=== PATIENT | male | born 1935 | race Caucasian/White ===

== ENCOUNTER 2017-02-23 16:46 | Inpatient (IN) ==
[2017-02-23 18:03] LABS: Basophils % 0.4 % (0.0-0.8); Eosinophils % 0.4 % (0.00-10.9); Hematocrit 44.1 VOL% (42.0-52.0); Hemoglobin 14.8 GM/DL (14.0-18.0); Immature Granulocytes % 0.6 %; Immature Granulocytes Absolute 0.06 #; Lymphocytes % 9.4 % (21.2-54.2); Mean Corpuscular HGB Conc 33.6 GM/DL (32-36); Mean Corpuscular Hemoglobin 29 PG (27-34); Mean Corpuscular Volume 87.2 FL (87-102); Mean Platelet Volume 11.1 FL (9.6-12.0); Monocytes # 0.4 10*3/uL (0.11-0.8); Monocytes % 4.1 % (1.7-12.7); Neutrophils # 8.9 10*3/uL (1.4-7.4); Neutrophils % 85.1 % (38.7-73.9); Platelet Count 231 T/CUMM (130-400); Red Blood Count 5.06 MC/CUMM (3.8-5.5); White Blood Count 10.5 T/CUMM (4-12)
[2017-02-23 18:11] LABS: INR 1.6; PT Patient Result 16.3 SECS
[2017-02-23 18:14] LABS: Calcium 9.5 MG/DL (8.5-10.1); Osmolality,Calculated 283.8 MOS/KG (273-304); Potassium 3.8 MMOL/L (3.5-5.1)
[2017-02-23] MEDS ORDERED: DIPH/TET/ACEL PERT BOOSTER VACCINE 0.5 ML VIAL IM ONE ×2 (19:44→20:20)
[2017-02-23] MEDS ORDERED: ceFAZolin 2,000 MG in SODIUM CHLORIDE 0.9% 100 ML IV STA (19:45)
[2017-02-23] MEDS ORDERED: ACETAMINOPHEN 325 MG TABLET PO PRN (20:09)
[2017-02-23] MEDS ORDERED: MORPHINE 10 MG/1 ML VIAL IV PRN (20:09)
[2017-02-23] MEDS ORDERED: ONDANSETRON 4 MG/2 ML VIAL IV PRN (20:09)
[2017-02-23] MEDS ORDERED: ceFAZolin 1,000 MG VIAL ONE (20:20)
[2017-02-24 07:28] LABS: INR 1.5; PT Patient Result 15.4 SECS; Partial Thromboplastin Time 31.5 SECS (0-40)
[2017-02-24 07:29] LABS: Basophils % 0.2 % (0.0-0.8); Eosinophils % 0.1 % (0.00-10.9); Hematocrit 36.6 VOL% (42.0-52.0); Immature Granulocytes % 0.6 %; Immature Granulocytes Absolute 0.05 #; Lymphocytes # 1.3 10*3/uL (1.4-4.0); Lymphocytes % 15.2 % (21.2-54.2); Mean Corpuscular HGB Conc 34.7 GM/DL (32-36); Mean Corpuscular Hemoglobin 30 PG (27-34); Mean Corpuscular Volume 85.1 FL (87-102); Mean Platelet Volume 11.4 FL (9.6-12.0); Monocytes # 0.8 10*3/uL (0.11-0.8); Monocytes % 9.7 % (1.7-12.7); Neutrophils # 6.3 10*3/uL (1.4-7.4); Neutrophils % 74.2 % (38.7-73.9); Platelet Count 207 T/CUMM (130-400); Red Cell Distribution Width 13.2 % (9.3-17.3); White Blood Count 8.4 T/CUMM (4-12)
[2017-02-24 07:42] LABS: Albumin 3.4 G/DL (3.4-5.0); Bilirubin,Total 1.5 MG/DL (0.2-1.0); Calcium 8.8 MG/DL (8.5-10.1); Hemoglobin 12.7 GM/DL (14.0-18.0); Osmolality,Calculated 280.8 MOS/KG (273-304); Potassium 3.1 MMOL/L (3.5-5.1); Total Protein 6.1 G/DL (6.4-8.3)
[2017-02-24] MEDS ORDERED: MAGNESIUM CHLORIDE 64 MG TABLET PO SCH (09:00)
[2017-02-24] MEDS: ENOXAPARIN 40 MG/0.4 ML SYRINGE SUBCUT SCH (09:51)
[2017-02-24] MEDS: FUROSEMIDE 40 MG TABLET PO SCH ×2 (09:51→15:40)
[2017-02-24] MEDS: INSULIN LISPRO 100 UNIT/ML SUBCUT SCH ×4 (09:51→21:10)
[2017-02-24] MEDS: cloNIDine 0.1 MG TABLET PO SCH (09:52)
[2017-02-24] MEDS: SOTALOL 80 MG TABLET PO SCH ×2 (09:52→21:09)
[2017-02-24] MEDS: sitaGLIPtin 100 MG TABLET PO SCH (09:52)
[2017-02-24] MEDS: ATORVASTATIN 40 MG TABLET PO SCH (09:52)
[2017-02-24] MEDS: LISINOPRIL 20 MG TABLET PO SCH ×2 (09:52→21:09)
[2017-02-24] MEDS: PANTOPRAZOLE 40 MG TABLET PO SCH (09:53)
[2017-02-24] MEDS ORDERED: SKIN HEALING OINT (AQUAPHOR) 50 GM TUBE TOP PRN (11:50)
[2017-02-24 14:47] LABS: Apearance,Urine CLEAR (Clear); Bilirubin,Urine Negative (Negative); Blood, Urine Negative (Negative); Glucose,Urine (UA) 50 mg/dL (Negative); Ketones,Urine 5 mg/dL (Negative); Mucus,Urine Occasional /LPF (Occasional); Nitrite,Urine Negative (Negative); Protein,Urine Negative; RBC,Urine <1 /HPF (0-4); Squamous Epithelial Cell,Urine Occasional /HPF (0-10); Urine Color Yellow (Yellow); Urine Specific Gravity 1.013 (1.001-1.035); Urine Urobilinogen < 2.0 EU/DL (0.2-1.0); WBC,Urine 1 /HPF (0-6)
[2017-02-24] MEDS ORDERED: PIOGLITAZONE 15 MG TABLET PO SCH (19:00)
[2017-02-25 05:30] LABS: Basophils % 0.2 % (0.0-0.8); Eosinophils # 0.1 10*3/uL (0.0-0.87); Eosinophils % 1.1 % (0.00-10.9); Hematocrit 35.7 VOL% (42.0-52.0); Hemoglobin 12.5 GM/DL (14.0-18.0); Immature Granulocytes % 0.5 %; Immature Granulocytes Absolute 0.04 #; Lymphocytes # 2.2 10*3/uL (1.4-4.0); Lymphocytes % 25.4 % (21.2-54.2); Mean Corpuscular Hemoglobin 30 PG (27-34); Mean Platelet Volume 11.5 FL (9.6-12.0); Monocytes # 0.9 10*3/uL (0.11-0.8); Monocytes % 10.2 % (1.7-12.7); Neutrophils # 5.4 10*3/uL (1.4-7.4); Neutrophils % 62.6 % (38.7-73.9); Platelet Count 212 T/CUMM (130-400); Red Cell Distribution Width 13.2 % (9.3-17.3); White Blood Count 8.6 T/CUMM (4-12)
[2017-02-25 06:03] LABS: Risk Ratio 1.98; Thyroid Stimulating Hormone 1.81 uIU/ml (0.358-3.74); VLDL CHOLESTEROL 11.8 MG/DL
[2017-02-25] MEDS: INSULIN LISPRO 100 UNIT/ML SUBCUT SCH (07:22)
[2017-02-25] MEDS: ENOXAPARIN 40 MG/0.4 ML SYRINGE SUBCUT SCH (07:23)
[2017-02-25 07:51] VITALS: BP 133/77
[2017-02-25] MEDS ORDERED: MAGNESIUM CHLORIDE 64 MG TABLET PO SCH (09:00)
[2017-02-25] MEDS: LISINOPRIL 20 MG TABLET PO SCH (09:10)
[2017-02-25] MEDS: sitaGLIPtin 100 MG TABLET PO SCH (09:10)
[2017-02-25] MEDS: ATORVASTATIN 40 MG TABLET PO SCH (09:10)
[2017-02-25] MEDS: PANTOPRAZOLE 40 MG TABLET PO SCH (09:10)
[2017-02-25] MEDS: cloNIDine 0.1 MG TABLET PO SCH (09:10)
[2017-02-25] MEDS: FUROSEMIDE 40 MG TABLET PO SCH (09:10)
[2017-02-25] MEDS: SOTALOL 80 MG TABLET PO SCH (09:10)
== END 2017-02-25 11:01 | disposition home health service (06) | DRG 158 ==
LOC: N.ED 16:46 → N.EDINP 20:09 → N.3E 20:58
PROVIDERS: ADMIT Family Medicine; ATTEND Family Medicine

== ENCOUNTER 2019-04-05 13:47 | Inpatient (IN) ==
[2019-04-05] MEDS ORDERED: ONDANSETRON 4 MG/2 ML VIAL IV STA (15:27)
[2019-04-05] MEDS ORDERED: HYDROmorphone 2 MG/1 ML VIAL IV STA (15:27)
[2019-04-05] MEDS ORDERED: ONDANSETRON 4 MG/2 ML VIAL ONE (15:29)
[2019-04-05] MEDS ORDERED: HYDROmorphone 2 MG/1 ML VIAL ONE (15:29)
[2019-04-05] MEDS ORDERED: ACETAMINOPHEN 325 MG TABLET PO PRN (15:33)
[2019-04-05] MEDS ORDERED: LIDOCAINE 1%/EPI INJ 20 ML VIAL ONE (15:33)
[2019-04-05] MEDS ORDERED: oxyCODONE/ACETAMINOPHEN 5-325 MG TABLET PO PRN (15:33)
[2019-04-05] MEDS ORDERED: ONDANSETRON 4 MG/2 ML VIAL IV PRN (15:33)
[2019-04-05] MEDS ORDERED: SODIUM CHLORIDE 0.9% 1,000 ML IV SCH (16:00)
[2019-04-05 16:29] LABS: Basophils # 0.1 10*3/uL (0.0-0.2); Basophils % 0.4 % (0.0-0.8); Eosinophils % 0.1 % (0.00-10.9); Hematocrit 39.6 VOL% (42.0-52.0); Immature Granulocytes % 0.7 %; Immature Granulocytes Absolute 0.09 #; Lymphocytes # 0.9 10*3/uL (1.4-4.0); Lymphocytes % 6.8 % (21.2-54.2); Mean Corpuscular HGB Conc 32.8 GM/DL (32-36); Mean Platelet Volume 11.1 FL (9.6-12.0); Monocytes % 6.4 % (1.7-12.7); Neutrophils % 85.6 % (38.7-73.9); Platelet Count 185 T/CUMM (130-400); Red Blood Count 4.35 MC/CUMM (3.8-5.5); Red Cell Distribution Width 12.9 % (9.3-17.3); White Blood Count 12.9 T/CUMM (4-12)
[2019-04-05 16:51] LABS: Calcium 9.1 MG/DL (8.5-10.1); Osmolality,Calculated 280.8 MOS/KG (273-304)
[2019-04-05] MEDS: MAGNESIUM SULF IV SCH (21:14)
[2019-04-05] MEDS: SODIUM CHLORIDE 0.9% IV SCH (21:14)
[2019-04-05] MEDS: POTASSIUM CHLORIDE IV SCH (21:14)
[2019-04-05] MEDS: POTASSIUM CHLORIDE RIDER 10 MEQ in PREMIX 1 EACH IV SCH ×2 (21:17→22:23)
[2019-04-05] MEDS: DOCUSATE SODIUM 100 MG CAPSULE PO SCH (21:18)
[2019-04-05] MEDS: lisinopriL 20 MG TABLET PO SCH (21:18)
[2019-04-05] MEDS: INSULIN LISPRO 100 UNIT/ML SUBCUT SCH (21:19)
[2019-04-05] MEDS ORDERED: POTASSIUM CHLORIDE RIDER 10 MEQ in PREMIX 1 EACH IV SCH (23:45)
[2019-04-06 04:38] LABS: Basophils % 0.2 % (0.0-0.8); Eosinophils % 0.2 % (0.00-10.9); Hematocrit 35.8 VOL% (42.0-52.0); Hemoglobin 11.4 GM/DL (14.0-18.0); Immature Granulocytes % 0.7 %; Immature Granulocytes Absolute 0.09 #; Lymphocytes # 1.1 10*3/uL (1.4-4.0); Lymphocytes % 9.2 % (21.2-54.2); Mean Corpuscular HGB Conc 31.8 GM/DL (32-36); Mean Platelet Volume 11.5 FL (9.6-12.0); Monocytes % 7.8 % (1.7-12.7); Neutrophils % 81.9 % (38.7-73.9); Platelet Count 155 T/CUMM (130-400); Red Blood Count 3.85 MC/CUMM (3.8-5.5); Red Cell Distribution Width 13.2 % (9.3-17.3); White Blood Count 12.3 T/CUMM (4-12)
[2019-04-06 05:01] LABS: Bilirubin,Total 2.7 MG/DL (0.2-1.0); Calcium 8.7 MG/DL (8.5-10.1); Osmolality,Calculated 284.7 MOS/KG (273-304); Total Protein 6.3 G/DL (6.4-8.3)
[2019-04-06] MEDS: POTASSIUM CHLORIDE IV SCH ×4 (05:33→23:41)
[2019-04-06] MEDS: MAGNESIUM SULF IV SCH ×4 (05:33→23:41)
[2019-04-06] MEDS: SODIUM CHLORIDE 0.9% IV SCH ×4 (05:33→23:41)
[2019-04-06] MEDS ORDERED: BUPIVACAINE MPF 0.5% /EPI 30 ML VIAL ONE (06:27)
[2019-04-06] MEDS ORDERED: DEXMEDETOMIDINE 200 MCG/2 ML VIAL ONE (06:27)
[2019-04-06] MEDS ORDERED: DEXAMETHASONE 4 MG/1 ML VIAL ONE (06:27)
[2019-04-06] MEDS ORDERED: LIDOCAINE 1% 5 ML VIAL ONE (06:27)
[2019-04-06] MEDS ORDERED: TRANEXAMIC ACID 1,000 MG/10 ML VIAL ONE (06:34)
[2019-04-06] MEDS ORDERED: ceFAZolin 2,000 MG in PREMIX 1 EACH IV ONE (07:00)
[2019-04-06] MEDS ORDERED: LACTATED RINGERS 1,000 ML IV SCH (07:30)
[2019-04-06] MEDS ORDERED: PROMETHAZINE 25 MG/1 ML VIAL IM PRN (08:43)
[2019-04-06] MEDS ORDERED: oxyCODONE/ACETAMINOPHEN 5-325 MG TABLET PO PRN (08:43)
[2019-04-06] MEDS ORDERED: LACTULOSE 20 GM/30 ML UDCUP PO PRN (08:43)
[2019-04-06] MEDS ORDERED: MAGNESIUM HYDROXIDE SUSP 30 ML UDCUP PO PRN (08:43)
[2019-04-06] MEDS ORDERED: TEMAZEPAM 7.5 MG CAPSULE PO PRN (08:43)
[2019-04-06] MEDS ORDERED: diphenhydrAMINE CAP 25 MG CAPSULE PO PRN (08:43)
[2019-04-06] MEDS ORDERED: MORPHINE 4 MG/1 ML VIAL IV PRN (08:43)
[2019-04-06] MEDS ORDERED: BISACODYL 10 MG SUPP RECTAL PRN (08:43)
[2019-04-06] MEDS ORDERED: DEXTROSE 10% 250 ML BAG IV PRN (08:49)
[2019-04-06] MEDS ORDERED: GLUCAGON 1 MG VIAL IM PRN (08:49)
[2019-04-06 09:02] LABS: Apearance,Urine CLEAR (Clear); Bilirubin,Urine Negative (Negative); Blood, Urine Small mg/dL (Negative); Glucose,Urine (UA) 50 mg/dL (Negative); Ketones,Urine Negative (Negative); Mucus,Urine Occasional /LPF (Occasional); Nitrite,Urine Negative (Negative); Protein,Urine Negative; RBC,Urine 8 /HPF (0-4); Urine Color Yellow (Yellow); Urine Specific Gravity 1.013 (1.001-1.035); Urine Urobilinogen < 2.0 EU/DL (0.2-1.0)
[2019-04-06] MEDS ORDERED: propofoL 200 MG/20 ML VIAL IV ONE (09:05)
[2019-04-06] MEDS ORDERED: LIDOCAINE 2% 5 ML VIAL ONE (09:05)
[2019-04-06] MEDS ORDERED: PHENYLEPHRINE DRIP 20 MG/250 ML PREMIX IV ONE (09:05)
[2019-04-06] MEDS ORDERED: SEVOFLURANE 1 UNIT/15 MINUTE INH ONE (09:05)
[2019-04-06] MEDS ORDERED: ETOMIDATE 40 MG/20 ML VIAL IV ONE (09:06)
[2019-04-06] MEDS ORDERED: GLYCOPYRROLATE 0.4 MG/2 ML VIAL ONE (09:06)
[2019-04-06] MEDS ORDERED: ACETAMINOPHEN 1,000 MG/100 ML VIAL IV ONE (09:06)
[2019-04-06] MEDS ORDERED: ONDANSETRON 4 MG/2 ML VIAL ONE (09:06)
[2019-04-06] MEDS ORDERED: fentaNYL 100 MCG/2 ML VIAL ONE ×2 (09:06)
[2019-04-06] MEDS ORDERED: SUCCINYLCHOLINE 200 MG/10 ML VIAL ONE (09:07)
[2019-04-06] MEDS ORDERED: NEOSTIGMINE 10 MG/10 ML VIAL ONE (09:07)
[2019-04-06] MEDS ORDERED: LACTATED RINGERS 1,000 ML IV ONE (09:07)
[2019-04-06] MEDS ORDERED: ROCURONIUM 100 MG/10 ML VIAL IV ONE (09:07)
[2019-04-06] MEDS ORDERED: PHENYLEPHRINE 1 MG/10 ML SYRINGE IV ONE (09:07)
[2019-04-06] MEDS ORDERED: BACITRACIN OINT 0.9 GM PACK TOP ONE (09:48)
[2019-04-06] MEDS: INSULIN LISPRO 100 UNIT/ML SUBCUT SCH ×4 (12:18→21:49)
[2019-04-06] MEDS: DOCUSATE SODIUM 100 MG CAPSULE PO SCH ×2 (12:19→21:39)
[2019-04-06] MEDS: SOTALOL 80 MG TABLET PO SCH (12:19)
[2019-04-06] MEDS: cloNIDine 0.1 MG TABLET PO SCH (12:19)
[2019-04-06] MEDS: FUROSEMIDE 40 MG TABLET PO SCH ×2 (12:19→16:35)
[2019-04-06] MEDS: metFORMIN 500 MG TABLET PO SCH ×2 (12:20→21:46)
[2019-04-06] MEDS: glipiZIDE 5 MG TABLET PO SCH ×2 (12:20→21:47)
[2019-04-06] MEDS: TAMSULOSIN 0.4 MG CAPSULE PO SCH (12:20)
[2019-04-06] MEDS: ATORVASTATIN 40 MG TABLET PO SCH (12:21)
[2019-04-06] MEDS: MAGNESIUM CHLORIDE 64 MG TABLET PO SCH ×2 (12:21→21:39)
[2019-04-06] MEDS: sitaGLIPtin 100 MG TABLET PO SCH (12:21)
[2019-04-06] MEDS: PANTOPRAZOLE 40 MG TABLET PO SCH (12:21)
[2019-04-06] MEDS: lisinopriL 20 MG TABLET PO SCH ×2 (12:21→21:39)
[2019-04-06] MEDS: INSULIN REGULAR 100 UNIT/ML SUBCUT SCH ×3 (12:40→21:49)
[2019-04-06] MEDS ORDERED: TUBERCULIN SKIN TEST 0.1 ML SYRINGE INTRADERM ONE (13:34)
[2019-04-06] MEDS: ceFAZolin 2,000 MG in PREMIX 1 EACH IV SCH ×2 (14:22→21:40)
[2019-04-06 16:44] LABS: Apearance,Urine Slightly Hazy (Clear); Bilirubin,Urine Negative (Negative); Blood, Urine Large mg/dL (Negative); Glucose,Urine (UA) >=500 mg/dL (Negative); Ketones,Urine 5 mg/dL (Negative); Mucus,Urine Occasional /LPF (Occasional); Nitrite,Urine Negative (Negative); Protein,Urine Negative; RBC,Urine 55 /HPF (0-4); Squamous Epithelial Cell,Urine Occasional /HPF (0-10); Urine Color Yellow (Yellow); Urine Specific Gravity 1.023 (1.001-1.035); Urine Urobilinogen < 2.0 EU/DL (0.2-1.0); WBC,Urine 51 /HPF (0-6)
[2019-04-06] MEDS: PIOGLITAZONE 15 MG TABLET PO SCH (18:45)
[2019-04-07] MEDS: SODIUM CHLORIDE 0.9% IV SCH ×3 (05:24→21:36)
[2019-04-07] MEDS: POTASSIUM CHLORIDE IV SCH ×3 (05:24→21:36)
[2019-04-07] MEDS: MAGNESIUM SULF IV SCH ×3 (05:24→21:36)
[2019-04-07 06:11] LABS: Basophils % 0.3 % (0.0-0.8); Eosinophils # 0.1 10*3/uL (0.0-0.87); Eosinophils % 0.8 % (0.00-10.9); Hematocrit 34.7 VOL% (42.0-52.0); Immature Granulocytes % 0.7 %; Immature Granulocytes Absolute 0.08 #; Lymphocytes # 1.1 10*3/uL (1.4-4.0); Lymphocytes % 9.6 % (21.2-54.2); Mean Corpuscular HGB Conc 31.7 GM/DL (32-36); Mean Corpuscular Volume 94.3 FL (87-102); Mean Platelet Volume 11.7 FL (9.6-12.0); Monocytes % 9.4 % (1.7-12.7); Neutrophils % 79.2 % (38.7-73.9); Platelet Count 150 T/CUMM (130-400); Red Blood Count 3.68 MC/CUMM (3.8-5.5); Red Cell Distribution Width 13.2 % (9.3-17.3); White Blood Count 11.2 T/CUMM (4-12)
[2019-04-07 06:39] LABS: Albumin 2.8 G/DL (3.4-5.0); Bilirubin,Total 2.1 MG/DL (0.2-1.0); Calcium 8.2 MG/DL (8.5-10.1); Osmolality,Calculated 284.8 MOS/KG (273-304); Total Protein 6.1 G/DL (6.4-8.3)
[2019-04-07] MEDS: SOTALOL 80 MG TABLET PO SCH (08:36)
[2019-04-07] MEDS: lisinopriL 20 MG TABLET PO SCH ×2 (08:36→21:01)
[2019-04-07] MEDS: TAMSULOSIN 0.4 MG CAPSULE PO SCH (08:36)
[2019-04-07] MEDS: glipiZIDE 5 MG TABLET PO SCH ×2 (08:36→21:01)
[2019-04-07] MEDS: metFORMIN 500 MG TABLET PO SCH ×2 (08:37→21:02)
[2019-04-07] MEDS: MAGNESIUM CHLORIDE 64 MG TABLET PO SCH ×2 (08:37→21:02)
[2019-04-07] MEDS: sitaGLIPtin 100 MG TABLET PO SCH (08:37)
[2019-04-07] MEDS: PANTOPRAZOLE 40 MG TABLET PO SCH (08:37)
[2019-04-07] MEDS: DOCUSATE SODIUM 100 MG CAPSULE PO SCH ×2 (08:37→21:02)
[2019-04-07] MEDS: cloNIDine 0.1 MG TABLET PO SCH (08:38)
[2019-04-07] MEDS: FUROSEMIDE 40 MG TABLET PO SCH ×2 (08:38→15:50)
[2019-04-07] MEDS: ATORVASTATIN 40 MG TABLET PO SCH (08:38)
[2019-04-07] MEDS: INSULIN REGULAR 100 UNIT/ML SUBCUT SCH ×4 (08:43→21:03)
[2019-04-07] MEDS: INSULIN LISPRO 100 UNIT/ML SUBCUT SCH ×4 (08:43→21:02)
[2019-04-07] MEDS: PIOGLITAZONE 15 MG TABLET PO SCH (18:36)
[2019-04-08] MEDS: INSULIN LISPRO 100 UNIT/ML SUBCUT SCH ×4 (07:32→21:03)
[2019-04-08] MEDS: INSULIN REGULAR 100 UNIT/ML SUBCUT SCH ×4 (07:32→21:03)
[2019-04-08] MEDS: SODIUM CHLORIDE 0.9% IV SCH ×2 (08:20→23:46)
[2019-04-08] MEDS: POTASSIUM CHLORIDE IV SCH ×2 (08:20→23:46)
[2019-04-08] MEDS: MAGNESIUM SULF IV SCH ×2 (08:20→23:46)
[2019-04-08] MEDS: SOTALOL 80 MG TABLET PO SCH (08:21)
[2019-04-08] MEDS: metFORMIN 500 MG TABLET PO SCH ×2 (08:21→20:54)
[2019-04-08] MEDS: DOCUSATE SODIUM 100 MG CAPSULE PO SCH ×2 (08:21→20:59)
[2019-04-08] MEDS: MAGNESIUM CHLORIDE 64 MG TABLET PO SCH ×2 (08:21→20:54)
[2019-04-08] MEDS: TAMSULOSIN 0.4 MG CAPSULE PO SCH (08:21)
[2019-04-08] MEDS: glipiZIDE 5 MG TABLET PO SCH ×2 (08:21→20:54)
[2019-04-08] MEDS: lisinopriL 20 MG TABLET PO SCH ×2 (08:22→20:53)
[2019-04-08] MEDS: PANTOPRAZOLE 40 MG TABLET PO SCH (08:22)
[2019-04-08] MEDS: FUROSEMIDE 40 MG TABLET PO SCH ×2 (08:22→18:20)
[2019-04-08] MEDS: sitaGLIPtin 100 MG TABLET PO SCH (08:22)
[2019-04-08] MEDS: ATORVASTATIN 40 MG TABLET PO SCH (08:22)
[2019-04-08] MEDS: cloNIDine 0.1 MG TABLET PO SCH (08:22)
[2019-04-08] MEDS: PIOGLITAZONE 15 MG TABLET PO SCH (18:20)
[2019-04-09 05:33] LABS: Basophils % 0.1 % (0.0-0.8); Eosinophils % 0.2 % (0.00-10.9); Hematocrit 31.1 VOL% (42.0-52.0); Hemoglobin 9.9 GM/DL (14.0-18.0); Immature Granulocytes % 1.1 %; Immature Granulocytes Absolute 0.11 #; Lymphocytes % 10.4 % (21.2-54.2); Mean Corpuscular HGB Conc 31.8 GM/DL (32-36); Mean Corpuscular Volume 94.2 FL (87-102); Mean Platelet Volume 11.6 FL (9.6-12.0); Monocytes % 8.6 % (1.7-12.7); Neutrophils % 79.6 % (38.7-73.9); Platelet Count 165 T/CUMM (130-400); Red Cell Distribution Width 13.2 % (9.3-17.3); White Blood Count 9.7 T/CUMM (4-12)
[2019-04-09 05:56] LABS: Calcium 8.2 MG/DL (8.5-10.1); Osmolality,Calculated 283.4 MOS/KG (273-304)
[2019-04-09] MEDS: POTASSIUM CHLORIDE IV SCH ×5 (07:36→17:37)
[2019-04-09] MEDS: SODIUM CHLORIDE 0.9% IV SCH ×5 (07:36→17:37)
[2019-04-09] MEDS: MAGNESIUM SULF IV SCH ×5 (07:36→17:37)
[2019-04-09] MEDS: INSULIN LISPRO 100 UNIT/ML SUBCUT SCH ×4 (08:52→23:21)
[2019-04-09] MEDS: INSULIN REGULAR 100 UNIT/ML SUBCUT SCH ×4 (08:52→23:21)
[2019-04-09] MEDS: SOTALOL 80 MG TABLET PO SCH (09:36)
[2019-04-09] MEDS: MAGNESIUM CHLORIDE 64 MG TABLET PO SCH ×2 (09:36→21:31)
[2019-04-09] MEDS: metFORMIN 500 MG TABLET PO SCH ×2 (09:37→21:31)
[2019-04-09] MEDS: DOCUSATE SODIUM 100 MG CAPSULE PO SCH ×2 (09:37→21:31)
[2019-04-09] MEDS: cloNIDine 0.1 MG TABLET PO SCH (09:37)
[2019-04-09] MEDS: glipiZIDE 5 MG TABLET PO SCH ×2 (09:37→23:21)
[2019-04-09] MEDS: TAMSULOSIN 0.4 MG CAPSULE PO SCH (09:37)
[2019-04-09] MEDS: ATORVASTATIN 40 MG TABLET PO SCH (09:38)
[2019-04-09] MEDS: PANTOPRAZOLE 40 MG TABLET PO SCH (09:38)
[2019-04-09] MEDS: lisinopriL 20 MG TABLET PO SCH ×2 (09:38→21:30)
[2019-04-09] MEDS: FUROSEMIDE 40 MG TABLET PO SCH ×2 (09:38→16:30)
[2019-04-09] MEDS: sitaGLIPtin 100 MG TABLET PO SCH (09:38)
[2019-04-09] MEDS: PIOGLITAZONE 15 MG TABLET PO SCH (18:48)
[2019-04-10] MEDS: MAGNESIUM SULF IV SCH ×2 (05:40→10:53)
[2019-04-10] MEDS: POTASSIUM CHLORIDE IV SCH ×2 (05:40→10:53)
[2019-04-10] MEDS: SODIUM CHLORIDE 0.9% IV SCH ×2 (05:40→10:53)
[2019-04-10 05:44] LABS: Basophils % 0.2 % (0.0-0.8); Eosinophils % 0.3 % (0.00-10.9); Hematocrit 31.4 VOL% (42.0-52.0); Hemoglobin 9.9 GM/DL (14.0-18.0); Immature Granulocytes % 0.7 %; Immature Granulocytes Absolute 0.06 #; Lymphocytes # 0.6 10*3/uL (1.4-4.0); Lymphocytes % 7.1 % (21.2-54.2); Mean Corpuscular HGB Conc 31.5 GM/DL (32-36); Mean Corpuscular Volume 93.7 FL (87-102); Mean Platelet Volume 11.4 FL (9.6-12.0); Monocytes % 6.6 % (1.7-12.7); NRBC # 0.02 10*3/uL; Neutrophils % 85.1 % (38.7-73.9); Platelet Count 192 T/CUMM (130-400); Red Blood Count 3.35 MC/CUMM (3.8-5.5); Red Cell Distribution Width 13.2 % (9.3-17.3); White Blood Count 8.7 T/CUMM (4-12)
[2019-04-10 06:19] LABS: Albumin 2.1 G/DL (3.4-5.0); Bilirubin,Total 1.7 MG/DL (0.2-1.0); Calcium 8.5 MG/DL (8.5-10.1); Osmolality,Calculated 279.5 MOS/KG (273-304); Total Protein 5.5 G/DL (6.4-8.3)
[2019-04-10] MEDS: INSULIN LISPRO 100 UNIT/ML SUBCUT SCH (08:13)
[2019-04-10] MEDS: INSULIN REGULAR 100 UNIT/ML SUBCUT SCH (08:13)
[2019-04-10] MEDS ORDERED: TAMSULOSIN 0.4 MG CAPSULE PO SCH (09:00)
[2019-04-10] MEDS: SOTALOL 80 MG TABLET PO SCH (09:33)
[2019-04-10] MEDS: ATORVASTATIN 40 MG TABLET PO SCH (09:33)
[2019-04-10] MEDS: metFORMIN 500 MG TABLET PO SCH (09:33)
[2019-04-10] MEDS: FUROSEMIDE 40 MG TABLET PO SCH (09:34)
[2019-04-10] MEDS: PANTOPRAZOLE 40 MG TABLET PO SCH (09:34)
[2019-04-10] MEDS: sitaGLIPtin 100 MG TABLET PO SCH (09:34)
[2019-04-10] MEDS: DOCUSATE SODIUM 100 MG CAPSULE PO SCH (09:34)
[2019-04-10] MEDS: glipiZIDE 5 MG TABLET PO SCH (09:34)
[2019-04-10] MEDS: MAGNESIUM CHLORIDE 64 MG TABLET PO SCH (09:34)
[2019-04-10] MEDS: lisinopriL 20 MG TABLET PO SCH (09:35)
[2019-04-10] MEDS: cloNIDine 0.1 MG TABLET PO SCH (09:35)
[2019-04-10 12:05] VITALS: BP 132/75
== END 2019-04-10 11:55 | disposition swing bed (61) | DRG 470 ==
LOC: EDBD → EDUNIT# → N.ED 13:47 → N.EDINP 15:32 → N.3E 16:53
PROVIDERS: ADMIT Family Medicine; ATTEND Family Medicine

== ENCOUNTER 2019-04-12 15:12 | Inpatient (IN) ==
[2019-04-12] MEDS ORDERED: methylPREDNISolone SOD SUC 125 MG/2 ML VIAL IV STA (16:04)
[2019-04-12] MEDS ORDERED: FUROSEMIDE 40 MG/4 ML VIAL IV STA ×2 (16:04→18:02)
[2019-04-12] MEDS ORDERED: ONDANSETRON 4 MG/2 ML VIAL IV STA (16:04)
[2019-04-12] MEDS ORDERED: MEROPENEM 1,000 MG in SODIUM CHLORIDE 0.9% 100 ML IV STA (16:12)
[2019-04-12] MEDS ORDERED: MEROPENEM 500 MG VIAL ONE (16:14)
[2019-04-12 16:24] LABS: Basophils % 0.1 % (0.0-0.8); Hemoglobin 10.8 GM/DL (14.0-18.0); Immature Granulocytes % 1.1 %; Immature Granulocytes Absolute 0.18 #; Lymphocytes # 0.4 10*3/uL (1.4-4.0); Lymphocytes % 2.6 % (21.2-54.2); Mean Corpuscular HGB Conc 31.8 GM/DL (32-36); Mean Corpuscular Volume 93.2 FL (87-102); Mean Platelet Volume 10.7 FL (9.6-12.0); Monocytes % 5.6 % (1.7-12.7); NRBC # 0.07 10*3/uL; Neutrophils % 90.6 % (38.7-73.9); Platelet Count 306 T/CUMM (130-400); Red Blood Count 3.65 MC/CUMM (3.8-5.5); Red Cell Distribution Width 13.4 % (9.3-17.3); White Blood Count 16.5 T/CUMM (4-12)
[2019-04-12 16:30] LABS: Alanine Aminotransferase 20 U/L (16-61); Albumin 2.2 G/DL (3.4-5.0); Alkaline Phosphatase 94 U/L (45-117); Aspartate Amino Transferase 11 U/L (0-37); Blood Urea Nitrogen 22 MG/DL (7-18); Calcium 9.2 MG/DL (8.5-10.1); Estimated Glom Filtration Rate 87 ML/MIN; Glucose 260 MG/DL (74-106); Osmolality,Calculated 288.5 MOS/KG (273-304); Total Protein 6.2 G/DL (6.4-8.3)
[2019-04-12] MEDS ORDERED: ALBUTEROL NEB SOLN 5 MG/ML 20 ML/BOTTLE CONT NEB SCH (16:30)
[2019-04-12 16:31] LABS: Troponin I 0.074 NG/ML (0.00-0.045)
[2019-04-12 16:33] LABS: INR 1.1; PT Patient Result 12.2 SECS (9.6-12.2); Partial Thromboplastin Time 29.9 SECS (20.8-36.0)
[2019-04-12 17:54] LABS: Apearance,Urine Slightly Hazy (Clear); Bacteria,Urine Many /HPF (Few); Bilirubin,Urine Negative (Negative); Blood, Urine Moderate mg/dL (Negative); Glucose,Urine (UA) Negative (Negative); Ketones,Urine Negative (Negative); Mucus,Urine Moderate /LPF (Occasional); Nitrite,Urine Negative (Negative); Protein,Urine Negative; RBC,Urine 24 /HPF (0-4); Squamous Epithelial Cell,Urine Occasional /HPF (0-10); Urine Color Yellow (Yellow); Urine Specific Gravity 1.013 (1.001-1.035); Urine Urobilinogen < 2.0 EU/DL (0.2-1.0); WBC,Urine 120 /HPF (0-6)
[2019-04-12 17:55] LABS: Band Neutrophils 1 % (0-10); Hypochromasia Slight; Lymphocytes 1 % (20-55); Platelet Estimate Normal; Segmented Neutrophils 96 % (50-85); Total Cells Counted 100
[2019-04-12] MEDS ORDERED: DEXTROSE 10% 250 ML BAG IV PRN (18:21)
[2019-04-12] MEDS ORDERED: ONDANSETRON 4 MG/2 ML VIAL IV PRN (18:21)
[2019-04-12] MEDS ORDERED: ACETAMINOPHEN 325 MG TABLET PO PRN (18:21)
[2019-04-12] MEDS ORDERED: GLUCAGON 1 MG VIAL IM PRN (18:21)
[2019-04-12] MEDS: ALBUTEROL/IPRATROPIUM 3 ML NEB RESP TX SCH (18:53)
[2019-04-12] MEDS ORDERED: ENOXAPARIN 100 MG/ML SYRINGE SUBCUT STA (19:05)
[2019-04-12] MEDS: glipiZIDE 10 MG TABLET PO SCH (20:55)
[2019-04-12] MEDS: lisinopriL 20 MG TABLET PO SCH (20:56)
[2019-04-12] MEDS: ENOXAPARIN 100 MG/ML SYRINGE SUBCUT SCH (20:56)
[2019-04-12] MEDS: MAGNESIUM CHLORIDE 64 MG TABLET PO SCH (20:56)
[2019-04-12] MEDS: TAMSULOSIN 0.4 MG CAPSULE PO SCH (20:56)
[2019-04-12] MEDS: metFORMIN 500 MG TABLET PO SCH (20:56)
[2019-04-12] MEDS: INSULIN REGULAR 100 UNIT/ML SUBCUT SCH (20:57)
[2019-04-12] MEDS ORDERED: APIXABAN 2.5 MG TABLET PO SCH (21:00)
[2019-04-12] MEDS ORDERED: MAGNESIUM SULF RIDER 4 GM in PREMIX 1 EACH IV PRN (21:33)
[2019-04-12] MEDS: MAGNESIUM SULF RIDER 2 GM in PREMIX 1 EACH IV PRN (21:52)
[2019-04-12] MEDS: POTASSIUM CHLORIDE RIDER 10 MEQ in PREMIX 1 EACH IV PRN ×3 (21:52→23:59)
[2019-04-12] MEDS: MEROPENEM 500 MG in SODIUM CHLORIDE 0.9% 100 ML IV SCH (22:54)
[2019-04-13] MEDS: ALBUTEROL/IPRATROPIUM 3 ML NEB RESP TX SCH ×4 (01:52→19:34)
[2019-04-13] MEDS: MEROPENEM 500 MG in SODIUM CHLORIDE 0.9% 100 ML IV SCH ×4 (03:31→21:41)
[2019-04-13 04:09] LABS: Basophils % 0.1 % (0.0-0.8); Hematocrit 30.2 VOL% (42.0-52.0); Hemoglobin 9.8 GM/DL (14.0-18.0); Immature Granulocytes % 0.9 %; Immature Granulocytes Absolute 0.14 #; Lymphocytes # 0.4 10*3/uL (1.4-4.0); Lymphocytes % 2.3 % (21.2-54.2); Mean Corpuscular HGB Conc 32.5 GM/DL (32-36); Mean Platelet Volume 11.3 FL (9.6-12.0); Monocytes % 2.2 % (1.7-12.7); NRBC # 0.03 10*3/uL; Neutrophils % 94.5 % (38.7-73.9); Platelet Count 243 T/CUMM (130-400); Red Blood Count 3.32 MC/CUMM (3.8-5.5); Red Cell Distribution Width 13.3 % (9.3-17.3); White Blood Count 15.4 T/CUMM (4-12)
[2019-04-13 04:34] LABS: Blood Urea Nitrogen 23 MG/DL (7-18); Calcium 8.8 MG/DL (8.5-10.1); Estimated Glom Filtration Rate 99 ML/MIN; Glucose 276 MG/DL (74-106); Osmolality,Calculated 294.3 MOS/KG (273-304); Troponin I 0.041 NG/ML (0.00-0.045)
[2019-04-13 04:57] LABS: Band Neutrophils 2 % (0-10); Lymphocytes 2 % (20-55); Platelet Estimate Normal; Segmented Neutrophils 91 % (50-85); Total Cells Counted 100
[2019-04-13] MEDS: POTASSIUM CHLORIDE RIDER 10 MEQ in PREMIX 1 EACH IV PRN ×2 (05:50→06:58)
[2019-04-13] MEDS ORDERED: FUROSEMIDE 40 MG/4 ML VIAL IV SCH (08:00)
[2019-04-13] MEDS: INSULIN REGULAR 100 UNIT/ML SUBCUT SCH ×4 (08:21→21:30)
[2019-04-13] MEDS: ENOXAPARIN 100 MG/ML SYRINGE SUBCUT SCH ×2 (08:23→21:34)
[2019-04-13] MEDS ORDERED: cloNIDine 0.1 MG TABLET PO SCH (09:00)
[2019-04-13] MEDS: sitaGLIPtin 100 MG TABLET PO SCH (12:28)
[2019-04-13] MEDS: MAGNESIUM CHLORIDE 64 MG TABLET PO SCH ×2 (12:28→21:33)
[2019-04-13] MEDS: glipiZIDE 10 MG TABLET PO SCH ×2 (12:28→21:37)
[2019-04-13] MEDS: lisinopriL 20 MG TABLET PO SCH (12:29)
[2019-04-13] MEDS: TAMSULOSIN 0.4 MG CAPSULE PO SCH ×2 (12:29→21:34)
[2019-04-13] MEDS: ATORVASTATIN 40 MG TABLET PO SCH (12:29)
[2019-04-13] MEDS: metFORMIN 500 MG TABLET PO SCH ×2 (12:29→21:37)
[2019-04-13] MEDS: PANTOPRAZOLE 40 MG TABLET PO SCH (12:29)
[2019-04-13] MEDS: SOTALOL 80 MG TABLET PO SCH (12:29)
[2019-04-13] MEDS: FUROSEMIDE 40 MG TABLET PO SCH (17:20)
[2019-04-13] MEDS: PIOGLITAZONE 15 MG TABLET PO SCH (17:20)
[2019-04-14] MEDS: ALBUTEROL/IPRATROPIUM 3 ML NEB RESP TX SCH ×4 (00:31→20:46)
[2019-04-14] MEDS: MEROPENEM 500 MG in SODIUM CHLORIDE 0.9% 100 ML IV SCH ×4 (04:27→21:53)
[2019-04-14 06:18] LABS: Basophils % 0.2 % (0.0-0.8); Eosinophils # 0.1 10*3/uL (0.0-0.87); Eosinophils % 0.7 % (0.00-10.9); Hematocrit 31.7 VOL% (42.0-52.0); Hemoglobin 10.1 GM/DL (14.0-18.0); Immature Granulocytes % 0.9 %; Immature Granulocytes Absolute 0.09 #; Lymphocytes # 0.5 10*3/uL (1.4-4.0); Lymphocytes % 4.3 % (21.2-54.2); Mean Corpuscular HGB Conc 31.9 GM/DL (32-36); Mean Corpuscular Volume 91.4 FL (87-102); Mean Platelet Volume 10.3 FL (9.6-12.0); Monocytes % 4.9 % (1.7-12.7); NRBC # 0.04 10*3/uL; Platelet Count 331 T/CUMM (130-400); Red Blood Count 3.47 MC/CUMM (3.8-5.5); Red Cell Distribution Width 13.4 % (9.3-17.3); White Blood Count 10.5 T/CUMM (4-12)
[2019-04-14 06:41] LABS: Lymphocytes 1 % (20-55); Platelet Estimate Adequate; Segmented Neutrophils 96 % (50-85); Total Cells Counted 100
[2019-04-14 06:51] LABS: Bilirubin,Total 1.2 MG/DL (0.2-1.0); Calcium 9.1 MG/DL (8.5-10.1); Osmolality,Calculated 280.4 MOS/KG (273-304); Total Protein 5.6 G/DL (6.4-8.3)
[2019-04-14] MEDS: INSULIN REGULAR 100 UNIT/ML SUBCUT SCH ×4 (08:53→21:54)
[2019-04-14] MEDS: glipiZIDE 10 MG TABLET PO SCH ×2 (08:54→22:00)
[2019-04-14] MEDS: sitaGLIPtin 100 MG TABLET PO SCH (08:54)
[2019-04-14] MEDS: ENOXAPARIN 100 MG/ML SYRINGE SUBCUT SCH ×2 (08:54→21:54)
[2019-04-14] MEDS: SOTALOL 80 MG TABLET PO SCH (08:55)
[2019-04-14] MEDS: MAGNESIUM CHLORIDE 64 MG TABLET PO SCH ×2 (08:55→22:00)
[2019-04-14] MEDS: ATORVASTATIN 40 MG TABLET PO SCH (08:55)
[2019-04-14] MEDS: TAMSULOSIN 0.4 MG CAPSULE PO SCH ×2 (08:55→22:00)
[2019-04-14] MEDS: metFORMIN 500 MG TABLET PO SCH ×2 (08:55→22:00)
[2019-04-14] MEDS: FUROSEMIDE 40 MG TABLET PO SCH ×2 (08:55→17:31)
[2019-04-14] MEDS: PANTOPRAZOLE 40 MG TABLET PO SCH (08:55)
[2019-04-14] MEDS: POTASSIUM CHLORIDE RIDER 10 MEQ in PREMIX 1 EACH IV PRN (12:32)
[2019-04-14] MEDS ORDERED: POTASSIUM CHLORIDE 20 MEQ TABLET PO ONE (12:47)
[2019-04-14] MEDS ORDERED: MAGNESIUM SULF RIDER 2 GM in PREMIX 1 EACH IV ONE (12:47)
[2019-04-14] MEDS: BUDESONIDE 0.25 MG/2 ML NEB RESP TX SCH ×2 (14:16→20:46)
[2019-04-14] MEDS: methylPREDNISolone SOD SUC 40 MG/1 ML VIAL IV SCH ×2 (14:20→21:54)
[2019-04-14] MEDS: PIOGLITAZONE 15 MG TABLET PO SCH (17:31)
[2019-04-14] MEDS: POTASSIUM CHLORIDE 20 MEQ TABLET PO PRN ×2 (17:31→22:00)
[2019-04-14] MEDS ORDERED: FUROSEMIDE 20 MG/2 ML VIAL IV ONE (20:45)
[2019-04-14] MEDS ORDERED: SODIUM CHLORIDE 0.45% 1,000 ML IV SCH (21:00)
[2019-04-15] MEDS: POTASSIUM CHLORIDE 20 MEQ TABLET PO PRN ×2 (00:36→03:34)
[2019-04-15] MEDS: MAGNESIUM SULF RIDER 2 GM in PREMIX 1 EACH IV PRN (00:38)
[2019-04-15] MEDS: ALBUTEROL/IPRATROPIUM 3 ML NEB RESP TX SCH ×4 (00:52→19:42)
[2019-04-15] MEDS: MEROPENEM 500 MG in SODIUM CHLORIDE 0.9% 100 ML IV SCH ×4 (03:45→21:10)
[2019-04-15] MEDS: methylPREDNISolone SOD SUC 40 MG/1 ML VIAL IV SCH ×3 (06:05→21:10)
[2019-04-15 06:19] LABS: Basophils % 0.3 % (0.0-0.8); Eosinophils % 0.1 % (0.00-10.9); Hematocrit 31.9 VOL% (42.0-52.0); Hemoglobin 10.2 GM/DL (14.0-18.0); Immature Granulocytes % 1.5 %; Immature Granulocytes Absolute 0.11 #; Lymphocytes # 0.4 10*3/uL (1.4-4.0); Mean Corpuscular Volume 90.9 FL (87-102); Mean Platelet Volume 10.6 FL (9.6-12.0); Monocytes % 6.3 % (1.7-12.7); NRBC # 0.02 10*3/uL; Neutrophils % 85.8 % (38.7-73.9); Platelet Count 323 T/CUMM (130-400); Red Blood Count 3.51 MC/CUMM (3.8-5.5); Red Cell Distribution Width 13.5 % (9.3-17.3); White Blood Count 7.3 T/CUMM (4-12)
[2019-04-15 06:39] LABS: Albumin 1.9 G/DL (3.4-5.0); Bilirubin,Total 0.9 MG/DL (0.2-1.0); Calcium 8.4 MG/DL (8.5-10.1); Osmolality,Calculated 283.4 MOS/KG (273-304); Total Protein 5.5 G/DL (6.4-8.3)
[2019-04-15] MEDS: BUDESONIDE 0.25 MG/2 ML NEB RESP TX SCH ×2 (07:47→19:42)
[2019-04-15] MEDS: INSULIN REGULAR 100 UNIT/ML SUBCUT SCH ×4 (08:34→21:12)
[2019-04-15] MEDS ORDERED: lisinopriL 20 MG TABLET PO SCH (09:00)
[2019-04-15] MEDS: metFORMIN 500 MG TABLET PO SCH ×2 (09:56→21:11)
[2019-04-15] MEDS: SOTALOL 80 MG TABLET PO SCH (09:56)
[2019-04-15] MEDS: ENOXAPARIN 100 MG/ML SYRINGE SUBCUT SCH ×2 (09:56→21:31)
[2019-04-15] MEDS: glipiZIDE 10 MG TABLET PO SCH ×2 (09:57→21:12)
[2019-04-15] MEDS: FUROSEMIDE 40 MG TABLET PO SCH (09:57)
[2019-04-15] MEDS: ATORVASTATIN 40 MG TABLET PO SCH (09:57)
[2019-04-15] MEDS: TAMSULOSIN 0.4 MG CAPSULE PO SCH ×2 (09:57→21:12)
[2019-04-15] MEDS: MAGNESIUM CHLORIDE 64 MG TABLET PO SCH ×2 (09:57→21:11)
[2019-04-15] MEDS: PANTOPRAZOLE 40 MG TABLET PO SCH (09:57)
[2019-04-15] MEDS: FERROUS SULFATE 325 MG TABLET PO SCH (09:57)
[2019-04-15] MEDS: sitaGLIPtin 100 MG TABLET PO SCH (09:57)
[2019-04-15] MEDS ORDERED: FUROSEMIDE 20 MG/2 ML VIAL IV ONE (13:18)
[2019-04-15] MEDS ORDERED: FUROSEMIDE 40 MG/4 ML VIAL IV ONE (13:47)
[2019-04-15] MEDS: METOPROLOL TARTRATE 25 MG TABLET PO SCH ×2 (14:44→21:12)
[2019-04-16] MEDS: ALBUTEROL/IPRATROPIUM 3 ML NEB RESP TX SCH ×4 (00:54→19:30)
[2019-04-16] MEDS: methylPREDNISolone SOD SUC 40 MG/1 ML VIAL IV SCH ×3 (05:20→22:31)
[2019-04-16] MEDS: FUROSEMIDE 40 MG/4 ML VIAL IV SCH ×3 (05:21→15:04)
[2019-04-16] MEDS: MEROPENEM 500 MG in SODIUM CHLORIDE 0.9% 100 ML IV SCH ×3 (05:21→22:33)
[2019-04-16 07:26] LABS: Calcium 8.3 MG/DL (8.5-10.1); Osmolality,Calculated 279.8 MOS/KG (273-304)
[2019-04-16] MEDS: BUDESONIDE 0.25 MG/2 ML NEB RESP TX SCH ×2 (07:28→19:30)
[2019-04-16] MEDS: INSULIN REGULAR 100 UNIT/ML SUBCUT SCH ×4 (08:57→23:02)
[2019-04-16] MEDS: POTASSIUM CHLORIDE 20 MEQ TABLET PO PRN (08:59)
[2019-04-16] MEDS: PANTOPRAZOLE 40 MG TABLET PO SCH (08:59)
[2019-04-16] MEDS: glipiZIDE 10 MG TABLET PO SCH ×2 (08:59→22:35)
[2019-04-16] MEDS: metFORMIN 500 MG TABLET PO SCH ×2 (08:59→22:35)
[2019-04-16] MEDS: SOTALOL 80 MG TABLET PO SCH (08:59)
[2019-04-16] MEDS: sitaGLIPtin 100 MG TABLET PO SCH (08:59)
[2019-04-16] MEDS: TAMSULOSIN 0.4 MG CAPSULE PO SCH ×2 (08:59→22:35)
[2019-04-16] MEDS: FERROUS SULFATE 325 MG TABLET PO SCH (08:59)
[2019-04-16] MEDS: MAGNESIUM CHLORIDE 64 MG TABLET PO SCH ×2 (09:00→22:36)
[2019-04-16] MEDS: ATORVASTATIN 40 MG TABLET PO SCH (09:00)
[2019-04-16] MEDS: METOPROLOL TARTRATE 25 MG TABLET PO SCH ×2 (09:00→22:38)
[2019-04-16] MEDS: APIXABAN 2.5 MG TABLET PO SCH ×2 (09:00→22:36)
[2019-04-16] MEDS ORDERED: POTASSIUM CHLORIDE 20 MEQ TABLET PO ONE (10:30)
[2019-04-17] MEDS: ALBUTEROL/IPRATROPIUM 3 ML NEB RESP TX SCH ×4 (00:10→19:42)
[2019-04-17] MEDS: MEROPENEM 500 MG in SODIUM CHLORIDE 0.9% 100 ML IV SCH ×4 (03:16→21:19)
[2019-04-17] MEDS: methylPREDNISolone SOD SUC 40 MG/1 ML VIAL IV SCH ×3 (05:01→21:18)
[2019-04-17 06:24] LABS: Basophils % 0.1 % (0.0-0.8); Hematocrit 34.1 VOL% (42.0-52.0); Hemoglobin 11.1 GM/DL (14.0-18.0); Immature Granulocytes % 1.1 %; Immature Granulocytes Absolute 0.13 #; Lymphocytes # 0.7 10*3/uL (1.4-4.0); Mean Corpuscular HGB Conc 32.6 GM/DL (32-36); Mean Corpuscular Volume 89.5 FL (87-102); Mean Platelet Volume 10.3 FL (9.6-12.0); NRBC # 0.02 10*3/uL; Neutrophils % 87.8 % (38.7-73.9); Platelet Count 335 T/CUMM (130-400); Red Blood Count 3.81 MC/CUMM (3.8-5.5); Red Cell Distribution Width 13.3 % (9.3-17.3); White Blood Count 11.8 T/CUMM (4-12)
[2019-04-17 06:36] LABS: Calcium 8.3 MG/DL (8.5-10.1); Osmolality,Calculated 283.4 MOS/KG (273-304)
[2019-04-17] MEDS: POTASSIUM CHLORIDE 20 MEQ TABLET PO PRN (06:48)
[2019-04-17] MEDS: BUDESONIDE 0.25 MG/2 ML NEB RESP TX SCH ×2 (07:37→19:42)
[2019-04-17] MEDS: INSULIN REGULAR 100 UNIT/ML SUBCUT SCH ×4 (09:39→21:22)
[2019-04-17] MEDS: TAMSULOSIN 0.4 MG CAPSULE PO SCH (09:40)
[2019-04-17] MEDS: glipiZIDE 10 MG TABLET PO SCH ×2 (09:40→21:22)
[2019-04-17] MEDS: SOTALOL 80 MG TABLET PO SCH (09:40)
[2019-04-17] MEDS: METOPROLOL TARTRATE 25 MG TABLET PO SCH ×2 (09:40→21:22)
[2019-04-17] MEDS: POTASSIUM CHLORIDE 20 MEQ TABLET PO SCH (09:40)
[2019-04-17] MEDS: metFORMIN 500 MG TABLET PO SCH ×2 (09:40→21:22)
[2019-04-17] MEDS: PANTOPRAZOLE 40 MG TABLET PO SCH (09:41)
[2019-04-17] MEDS: sitaGLIPtin 100 MG TABLET PO SCH (09:41)
[2019-04-17] MEDS: ATORVASTATIN 40 MG TABLET PO SCH (09:41)
[2019-04-17] MEDS: FUROSEMIDE 40 MG TABLET PO SCH ×2 (09:41→18:13)
[2019-04-17] MEDS: APIXABAN 2.5 MG TABLET PO SCH ×2 (09:41→21:23)
[2019-04-17] MEDS: FERROUS SULFATE 325 MG TABLET PO SCH (09:41)
[2019-04-17] MEDS: MAGNESIUM CHLORIDE 64 MG TABLET PO SCH ×2 (09:41→21:22)
[2019-04-17] MEDS: POTASSIUM CHLORIDE RIDER 10 MEQ in PREMIX 1 EACH IV SCH ×3 (11:15→15:45)
[2019-04-17] MEDS: FINASTERIDE 5 MG TABLET PO SCH (21:22)
[2019-04-18] MEDS: ALBUTEROL/IPRATROPIUM 3 ML NEB RESP TX SCH ×4 (00:39→19:27)
[2019-04-18] MEDS: methylPREDNISolone SOD SUC 40 MG/1 ML VIAL IV SCH (04:08)
[2019-04-18] MEDS: MEROPENEM 500 MG in SODIUM CHLORIDE 0.9% 100 ML IV SCH (04:09)
[2019-04-18 05:30] LABS: Basophils % 0.1 % (0.0-0.8); Eosinophils % 0.1 % (0.00-10.9); Hematocrit 33.1 VOL% (42.0-52.0); Hemoglobin 10.3 GM/DL (14.0-18.0); Immature Granulocytes % 1.5 %; Immature Granulocytes Absolute 0.16 #; Lymphocytes % 9.3 % (21.2-54.2); Mean Corpuscular HGB Conc 31.1 GM/DL (32-36); Mean Corpuscular Volume 91.9 FL (87-102); Mean Platelet Volume 10.3 FL (9.6-12.0); Monocytes % 5.1 % (1.7-12.7); NRBC # 0.02 10*3/uL; Neutrophils % 83.9 % (38.7-73.9); Platelet Count 352 T/CUMM (130-400); Red Cell Distribution Width 13.3 % (9.3-17.3); White Blood Count 10.8 T/CUMM (4-12)
[2019-04-18 05:55] LABS: Calcium 8.5 MG/DL (8.5-10.1); Osmolality,Calculated 281.5 MOS/KG (273-304)
[2019-04-18 05:59] LABS: Hypochromasia Slight; Platelet Estimate Adequate
[2019-04-18 06:00] LABS: Ovalocytes Slight
[2019-04-18] MEDS: BUDESONIDE 0.25 MG/2 ML NEB RESP TX SCH ×2 (08:00→19:27)
[2019-04-18] MEDS ORDERED: MAGNESIUM SULF INJ 3 GM in SODIUM CHLORIDE 0.9% 100 ML IV ONE (09:00)
[2019-04-18] MEDS: SOTALOL 80 MG TABLET PO SCH (09:51)
[2019-04-18] MEDS: FUROSEMIDE 40 MG TABLET PO SCH ×2 (09:51→15:23)
[2019-04-18] MEDS: MAGNESIUM CHLORIDE 64 MG TABLET PO SCH ×2 (09:52→21:55)
[2019-04-18] MEDS: POTASSIUM CHLORIDE 20 MEQ TABLET PO SCH (09:52)
[2019-04-18] MEDS: APIXABAN 2.5 MG TABLET PO SCH ×2 (09:53→21:55)
[2019-04-18] MEDS: glipiZIDE 10 MG TABLET PO SCH ×2 (09:53→21:55)
[2019-04-18] MEDS: ATORVASTATIN 40 MG TABLET PO SCH (09:53)
[2019-04-18] MEDS: CEFUROXIME 500 MG TABLET PO SCH ×2 (09:54→21:55)
[2019-04-18] MEDS: metFORMIN 500 MG TABLET PO SCH ×2 (09:54→21:57)
[2019-04-18] MEDS: METOPROLOL TARTRATE 25 MG TABLET PO SCH ×2 (09:55→22:59)
[2019-04-18] MEDS: sitaGLIPtin 100 MG TABLET PO SCH (09:55)
[2019-04-18] MEDS: TAMSULOSIN 0.4 MG CAPSULE PO SCH (09:55)
[2019-04-18] MEDS: INSULIN REGULAR 100 UNIT/ML SUBCUT SCH ×4 (09:56→22:58)
[2019-04-18] MEDS: PANTOPRAZOLE 40 MG TABLET PO SCH (09:56)
[2019-04-18] MEDS: FINASTERIDE 5 MG TABLET PO SCH (22:59)
[2019-04-19] MEDS: ALBUTEROL/IPRATROPIUM 3 ML NEB RESP TX SCH ×3 (01:04→13:24)
[2019-04-19 06:40] LABS: Basophils % 0.1 % (0.0-0.8); Eosinophils # 0.1 10*3/uL (0.0-0.87); Eosinophils % 0.9 % (0.00-10.9); Hematocrit 35.9 VOL% (42.0-52.0); Hemoglobin 10.9 GM/DL (14.0-18.0); Immature Granulocytes % 1.3 %; Immature Granulocytes Absolute 0.15 #; Lymphocytes # 1.3 10*3/uL (1.4-4.0); Lymphocytes % 10.8 % (21.2-54.2); Mean Corpuscular HGB Conc 30.4 GM/DL (32-36); Mean Corpuscular Volume 93.5 FL (87-102); Mean Platelet Volume 10.4 FL (9.6-12.0); Monocytes % 5.4 % (1.7-12.7); NRBC # 0.02 10*3/uL; Neutrophils % 81.5 % (38.7-73.9); Platelet Count 398 T/CUMM (130-400); Red Blood Count 3.84 MC/CUMM (3.8-5.5); Red Cell Distribution Width 13.5 % (9.3-17.3); White Blood Count 11.7 T/CUMM (4-12)
[2019-04-19 07:05] LABS: Calcium 8.5 MG/DL (8.5-10.1); Hypochromasia 1+; Microcytosis Slight; Osmolality,Calculated 285.3 MOS/KG (273-304); Ovalocytes Slight
[2019-04-19 07:06] LABS: Platelet Estimate Normal
[2019-04-19] MEDS: BUDESONIDE 0.25 MG/2 ML NEB RESP TX SCH (07:25)
[2019-04-19] MEDS: INSULIN REGULAR 100 UNIT/ML SUBCUT SCH ×2 (07:38→12:02)
[2019-04-19] MEDS ORDERED: metOLazone 5 MG TABLET PO SCH (09:00)
[2019-04-19] MEDS: SOTALOL 80 MG TABLET PO SCH (09:26)
[2019-04-19] MEDS: CEFUROXIME 500 MG TABLET PO SCH (09:26)
[2019-04-19] MEDS: MAGNESIUM CHLORIDE 64 MG TABLET PO SCH (09:26)
[2019-04-19] MEDS: POTASSIUM CHLORIDE 20 MEQ TABLET PO SCH (09:26)
[2019-04-19] MEDS: sitaGLIPtin 100 MG TABLET PO SCH (09:27)
[2019-04-19] MEDS: glipiZIDE 10 MG TABLET PO SCH (09:27)
[2019-04-19] MEDS: ATORVASTATIN 40 MG TABLET PO SCH (09:27)
[2019-04-19] MEDS: metFORMIN 500 MG TABLET PO SCH (09:27)
[2019-04-19] MEDS: FUROSEMIDE 80 MG TABLET PO SCH ×2 (09:28→17:33)
[2019-04-19] MEDS: APIXABAN 2.5 MG TABLET PO SCH (09:28)
[2019-04-19] MEDS: TAMSULOSIN 0.4 MG CAPSULE PO SCH (09:28)
[2019-04-19] MEDS: PANTOPRAZOLE 40 MG TABLET PO SCH (09:28)
[2019-04-19] MEDS: METOPROLOL TARTRATE 25 MG TABLET PO SCH (09:28)
[2019-04-19 13:02] VITALS: BP 118/78
[2019-04-19] MEDS ORDERED: BUDESONIDE/FORMOTEROL 160-4.5 INHALER 6 GM INH SCH (13:30)
== END 2019-04-19 17:33 | disposition swing bed (61) | DRG 291 ==
LOC: EDUNIT# → EDBD → N.ED 15:12 → N.EDINP 18:19 → N.CC 19:22 → N.2E 04-13 15:14
PROVIDERS: ADMIT Family Medicine; ATTEND Family Medicine

== ENCOUNTER 2019-04-23 19:30 | Inpatient (IN) ==
[2019-04-23] MEDS ORDERED: PANTOPRAZOLE 40 MG VIAL IV STA (19:58)
[2019-04-23] MEDS ORDERED: methylPREDNISolone SOD SUC 125 MG/2 ML VIAL IV STA (19:58)
[2019-04-23] MEDS ORDERED: ALBUTEROL/IPRATROPIUM 3 ML NEB RESP TX STA (19:58)
[2019-04-23 20:35] LABS: Basophils % 0.2 % (0.0-0.8); Eosinophils # 0.2 10*3/uL (0.0-0.87); Eosinophils % 1.4 % (0.00-10.9); Hematocrit 32.5 VOL% (42.0-52.0); Hemoglobin 10.4 GM/DL (14.0-18.0); Immature Granulocytes % 0.7 %; Immature Granulocytes Absolute 0.09 #; Lymphocytes # 0.9 10*3/uL (1.4-4.0); Lymphocytes % 7.2 % (21.2-54.2); Mean Corpuscular Volume 90.3 FL (87-102); Mean Platelet Volume 10.4 FL (9.6-12.0); Neutrophils % 85.5 % (38.7-73.9); Platelet Count 369 T/CUMM (130-400); Red Cell Distribution Width 13.5 % (9.3-17.3); White Blood Count 12.6 T/CUMM (4-12)
[2019-04-23 20:46] LABS: INR 1.1; PT Patient Result 11.8 SECS (9.6-12.2)
[2019-04-23 21:08] LABS: Albumin 2.2 G/DL (3.4-5.0); Bilirubin,Total 0.9 MG/DL (0.2-1.0); Calcium 8.5 MG/DL (8.5-10.1); Osmolality,Calculated 289.5 MOS/KG (273-304); Total Protein 5.5 G/DL (6.4-8.3)
[2019-04-24] MEDS ORDERED: SODIUM CHLORIDE 0.9% 1,000 ML IV SCH
[2019-04-24] MEDS ORDERED: GLUCAGON 1 MG VIAL IM PRN
[2019-04-24] MEDS ORDERED: MORPHINE 4 MG/1 ML VIAL IV PRN
[2019-04-24] MEDS ORDERED: ONDANSETRON 4 MG/2 ML VIAL IV PRN
[2019-04-24] MEDS ORDERED: ACETAMINOPHEN 325 MG TABLET PO PRN
[2019-04-24] MEDS ORDERED: DEXTROSE 10% 250 ML BAG IV PRN (00:03)
[2019-04-24 01:03] LABS: Basophils % 0.2 % (0.0-0.8); Eosinophils % 0.2 % (0.00-10.9); Hemoglobin 10.5 GM/DL (14.0-18.0); Immature Granulocytes % 0.7 %; Immature Granulocytes Absolute 0.09 #; Lymphocytes # 0.5 10*3/uL (1.4-4.0); Lymphocytes % 3.9 % (21.2-54.2); Mean Corpuscular HGB Conc 32.8 GM/DL (32-36); Mean Corpuscular Volume 88.9 FL (87-102); Mean Platelet Volume 10.4 FL (9.6-12.0); Platelet Count 335 T/CUMM (130-400); Red Cell Distribution Width 13.6 % (9.3-17.3); White Blood Count 13.3 T/CUMM (4-12)
[2019-04-24] MEDS: INSULIN REGULAR 100 UNIT/ML SUBCUT SCH ×4 (01:11→17:40)
[2019-04-24 01:23] LABS: Bilirubin,Total 0.8 MG/DL (0.2-1.0); Osmolality,Calculated 292.8 MOS/KG (273-304); Total Protein 5.6 G/DL (6.4-8.3)
[2019-04-24 02:20] LABS: Lymphocytes 4 % (20-55); Segmented Neutrophils 95 % (50-85); Total Cells Counted 100
[2019-04-24 02:21] LABS: Anisocytosis Slight; Ovalocytes Few; Platelet Estimate Normal
[2019-04-24] MEDS: ALBUTEROL/IPRATROPIUM 3 ML NEB RESP TX SCH ×6 (07:51→23:29)
[2019-04-24] MEDS: METOPROLOL TARTRATE 25 MG TABLET PO SCH ×2 (09:40→22:04)
[2019-04-24] MEDS: ASPIRIN EC 81 MG TABLET PO SCH (09:40)
[2019-04-24] MEDS: glyBURIDE/METFORMIN 5-500 MG TABLET PO SCH ×2 (09:40→22:40)
[2019-04-24] MEDS: SOTALOL 80 MG TABLET PO SCH (09:40)
[2019-04-24] MEDS: CEFUROXIME 500 MG TABLET PO SCH ×2 (09:40→22:05)
[2019-04-24] MEDS: MAGNESIUM CHLORIDE 64 MG TABLET PO SCH ×2 (09:40→22:05)
[2019-04-24] MEDS: POTASSIUM CHLORIDE 10 MEQ TABLET PO SCH ×2 (09:40→22:05)
[2019-04-24] MEDS: DOCUSATE SODIUM 100 MG CAPSULE PO SCH ×2 (09:40→22:05)
[2019-04-24] MEDS: lisinopriL 20 MG TABLET PO SCH ×2 (09:40→22:04)
[2019-04-24] MEDS: ATORVASTATIN 40 MG TABLET PO SCH (09:40)
[2019-04-24] MEDS: MAGNESIUM SULF INJ 2 GM, POTASSIUM CHLORIDE INJ 20 MEQ in SODIUM CHLORIDE 0.9% 1,000 ML IV SCH ×2 (09:41→23:44)
[2019-04-24] MEDS: PANTOPRAZOLE 40 MG VIAL IV SCH (09:41)
[2019-04-24] MEDS: BUDESONIDE/FORMOTEROL 160-4.5 INHALER 6 GM INH SCH ×2 (09:41→22:06)
[2019-04-24] MEDS: FUROSEMIDE 80 MG TABLET PO SCH (16:34)
[2019-04-24] MEDS: PIOGLITAZONE 15 MG TABLET PO SCH (18:13)
[2019-04-24] MEDS: FINASTERIDE 5 MG TABLET PO SCH (22:05)
[2019-04-25] MEDS: INSULIN REGULAR 100 UNIT/ML SUBCUT SCH ×4 (00:34→19:47)
[2019-04-25] MEDS: ALBUTEROL/IPRATROPIUM 3 ML NEB RESP TX SCH ×6 (02:45→23:51)
[2019-04-25 04:40] LABS: Basophils % 0.3 % (0.0-0.8); Eosinophils # 0.1 10*3/uL (0.0-0.87); Hematocrit 32.2 VOL% (42.0-52.0); Hemoglobin 10.3 GM/DL (14.0-18.0); Immature Granulocytes % 0.6 %; Immature Granulocytes Absolute 0.07 #; Lymphocytes # 0.8 10*3/uL (1.4-4.0); Lymphocytes % 7.2 % (21.2-54.2); Mean Corpuscular Volume 89.9 FL (87-102); Mean Platelet Volume 10.8 FL (9.6-12.0); Monocytes % 5.8 % (1.7-12.7); Neutrophils % 85.1 % (38.7-73.9); Platelet Count 358 T/CUMM (130-400); Red Blood Count 3.58 MC/CUMM (3.8-5.5); Red Cell Distribution Width 13.6 % (9.3-17.3); White Blood Count 11.1 T/CUMM (4-12)
[2019-04-25 05:07] LABS: Albumin 2.2 G/DL (3.4-5.0); Bilirubin,Total 0.8 MG/DL (0.2-1.0); Calcium 8.5 MG/DL (8.5-10.1); Osmolality,Calculated 291.4 MOS/KG (273-304)
[2019-04-25 05:09] LABS: Risk Ratio 2.97; VLDL CHOLESTEROL 15.8 MG/DL
[2019-04-25 06:11] LABS: Apearance,Urine CLEAR (Clear); Bacteria,Urine Occasional /HPF (Few); Bilirubin,Urine Negative (Negative); Blood, Urine Negative (Negative); Glucose,Urine (UA) Negative (Negative); Ketones,Urine Negative (Negative); Nitrite,Urine Negative (Negative); Protein,Urine Negative; RBC,Urine 1 /HPF (0-4); Urine Color Yellow (Yellow); Urine Specific Gravity 1.009 (1.001-1.035); Urine Urobilinogen < 2.0 EU/DL (0.2-1.0); WBC,Urine 1 /HPF (0-6)
[2019-04-25] MEDS: POTASSIUM CHLORIDE RIDER 10 MEQ in PREMIX 1 EACH IV SCH ×3 (09:32→13:54)
[2019-04-25] MEDS: PANTOPRAZOLE 40 MG VIAL IV SCH (09:35)
[2019-04-25] MEDS: SOTALOL 80 MG TABLET PO SCH (09:55)
[2019-04-25] MEDS: glyBURIDE/METFORMIN 5-500 MG TABLET PO SCH ×2 (09:55→21:37)
[2019-04-25] MEDS: MAGNESIUM CHLORIDE 64 MG TABLET PO SCH ×2 (09:56→21:37)
[2019-04-25] MEDS: DOCUSATE SODIUM 100 MG CAPSULE PO SCH ×2 (09:56→21:37)
[2019-04-25] MEDS: FUROSEMIDE 80 MG TABLET PO SCH ×2 (09:56→16:56)
[2019-04-25] MEDS: ATORVASTATIN 40 MG TABLET PO SCH (09:56)
[2019-04-25] MEDS: POTASSIUM CHLORIDE 20 MEQ TABLET PO SCH ×2 (09:56→21:37)
[2019-04-25] MEDS: METOPROLOL TARTRATE 25 MG TABLET PO SCH ×2 (09:56→21:38)
[2019-04-25] MEDS: CEFUROXIME 500 MG TABLET PO SCH (09:56)
[2019-04-25] MEDS: lisinopriL 20 MG TABLET PO SCH ×2 (09:56→21:38)
[2019-04-25] MEDS: ASPIRIN EC 81 MG TABLET PO SCH (09:58)
[2019-04-25] MEDS: BUDESONIDE/FORMOTEROL 160-4.5 INHALER 6 GM INH SCH ×2 (10:03→21:38)
[2019-04-25] MEDS: MAGNESIUM SULF INJ 2 GM, POTASSIUM CHLORIDE INJ 20 MEQ in SODIUM CHLORIDE 0.9% 1,000 ML IV SCH (13:28)
[2019-04-25] MEDS: SODIUM CHLORIDE 0.9% IV SCH (14:26)
[2019-04-25] MEDS: POTASSIUM CHLORIDE IV SCH (14:26)
[2019-04-25] MEDS: MAGNESIUM SULF IV SCH (14:26)
[2019-04-25] MEDS: PIOGLITAZONE 15 MG TABLET PO SCH (17:08)
[2019-04-25] MEDS: SULFAMETHOX/TRIMETHOPRIM 800-160 MG TABLET PO SCH (21:38)
[2019-04-25] MEDS: FINASTERIDE 5 MG TABLET PO SCH (21:38)
[2019-04-26] MEDS: INSULIN REGULAR 100 UNIT/ML SUBCUT SCH ×3 (02:06→12:17)
[2019-04-26] MEDS: ALBUTEROL/IPRATROPIUM 3 ML NEB RESP TX SCH ×4 (03:18→14:23)
[2019-04-26] MEDS: MAGNESIUM SULF IV SCH (05:01)
[2019-04-26] MEDS: SODIUM CHLORIDE 0.9% IV SCH (05:01)
[2019-04-26] MEDS: POTASSIUM CHLORIDE IV SCH (05:01)
[2019-04-26] MEDS: PANTOPRAZOLE 40 MG VIAL IV SCH (08:53)
[2019-04-26] MEDS: SOTALOL 80 MG TABLET PO SCH (08:53)
[2019-04-26] MEDS: MAGNESIUM CHLORIDE 64 MG TABLET PO SCH (08:53)
[2019-04-26] MEDS: POTASSIUM CHLORIDE 20 MEQ TABLET PO SCH (08:53)
[2019-04-26] MEDS: glyBURIDE/METFORMIN 5-500 MG TABLET PO SCH (08:53)
[2019-04-26] MEDS: SULFAMETHOX/TRIMETHOPRIM 800-160 MG TABLET PO SCH (08:54)
[2019-04-26] MEDS: METOPROLOL TARTRATE 25 MG TABLET PO SCH (08:54)
[2019-04-26] MEDS: BUDESONIDE/FORMOTEROL 160-4.5 INHALER 6 GM INH SCH (08:54)
[2019-04-26] MEDS: ASPIRIN EC 81 MG TABLET PO SCH (08:54)
[2019-04-26] MEDS: FUROSEMIDE 80 MG TABLET PO SCH (08:54)
[2019-04-26] MEDS: lisinopriL 20 MG TABLET PO SCH (08:54)
[2019-04-26] MEDS: ATORVASTATIN 40 MG TABLET PO SCH (08:54)
[2019-04-26] MEDS: DOCUSATE SODIUM 100 MG CAPSULE PO SCH (08:56)
[2019-04-26] MEDS ORDERED: POLYETHYLENE GLYCOL POWDER 17 GM PACK PO PRN (09:00)
[2019-04-26 10:03] LABS: Basophils % 0.3 % (0.0-0.8); Eosinophils # 0.2 10*3/uL (0.0-0.87); Eosinophils % 1.9 % (0.00-10.9); Hematocrit 32.6 VOL% (42.0-52.0); Hemoglobin 10.4 GM/DL (14.0-18.0); Immature Granulocytes % 0.6 %; Immature Granulocytes Absolute 0.06 #; Lymphocytes # 0.9 10*3/uL (1.4-4.0); Lymphocytes % 9.3 % (21.2-54.2); Mean Corpuscular HGB Conc 31.9 GM/DL (32-36); Mean Corpuscular Volume 90.6 FL (87-102); Mean Platelet Volume 10.2 FL (9.6-12.0); Monocytes % 6.2 % (1.7-12.7); Neutrophils % 81.7 % (38.7-73.9); Platelet Count 316 T/CUMM (130-400); Red Cell Distribution Width 13.4 % (9.3-17.3); White Blood Count 9.5 T/CUMM (4-12)
[2019-04-26 10:32] LABS: Calcium 8.6 MG/DL (8.5-10.1); Osmolality,Calculated 286.5 MOS/KG (273-304)
[2019-04-26] MEDS ORDERED: LEVOFLOXACIN 500 MG TABLET PO SCH (12:00)
[2019-04-26 12:24] VITALS: BP 140/102
== END 2019-04-26 14:55 | disposition swing bed (61) | DRG 813 ==
LOC: EDUNIT# → EDBD → N.ED 19:30 → N.EDINP 21:46 → N.TELES 22:43
PROVIDERS: ADMIT Family Medicine; ATTEND Family Medicine

== ENCOUNTER 2019-05-01 09:46 | Inpatient (IN) ==
[2019-05-01] MEDS ORDERED: SODIUM CHLORIDE 0.9% 1,000 ML IV STA (10:08)
[2019-05-01] MEDS ORDERED: ALBUTEROL/IPRATROPIUM 3 ML NEB RESP TX STA (10:08)
[2019-05-01 10:55] LABS: Basophils % 0.2 % (0.0-0.8); Eosinophils % 0.1 % (0.00-10.9); Hematocrit 35.4 VOL% (42.0-52.0); Hemoglobin 10.8 GM/DL (14.0-18.0); Immature Granulocytes % 1.6 %; Immature Granulocytes Absolute 0.15 #; Lymphocytes # 0.8 10*3/uL (1.4-4.0); Lymphocytes % 8.4 % (21.2-54.2); Mean Corpuscular HGB Conc 30.5 GM/DL (32-36); Mean Corpuscular Volume 92.7 FL (87-102); Mean Platelet Volume 11.5 FL (9.6-12.0); Monocytes % 4.7 % (1.7-12.7); Platelet Count 141 T/CUMM (130-400); Red Blood Count 3.82 MC/CUMM (3.8-5.5); Red Cell Distribution Width 14.2 % (9.3-17.3); White Blood Count 9.6 T/CUMM (4-12)
[2019-05-01 11:15] LABS: INR 1.3; PT Patient Result 13.8 SECS (9.6-12.2)
[2019-05-01 11:27] LABS: Albumin 2.6 G/DL (3.4-5.0); Bilirubin,Total 1.9 MG/DL (0.2-1.0); Calcium 9.1 MG/DL (8.5-10.1); Osmolality,Calculated 297.4 MOS/KG (273-304); Total Protein 6.6 G/DL (6.4-8.3)
[2019-05-01] MEDS ORDERED: SODIUM CHLORIDE 0.9% 2,900 ML IV ONE (11:49)
[2019-05-01] MEDS ORDERED: PIPERACILLIN/TAZOBACTAM 3,375 MG in SODIUM CHLORIDE 0.9% 100 ML IV SCH (12:00)
[2019-05-01 12:25] LABS: Apearance,Urine Slightly Hazy (Clear); Bilirubin,Urine Negative (Negative); Blood, Urine Small mg/dL (Negative); Glucose,Urine (UA) Negative (Negative); Ketones,Urine Negative (Negative); Mucus,Urine Occasional /LPF (Occasional); Nitrite,Urine Negative (Negative); Protein,Urine Negative; Squamous Epithelial Cell,Urine Occasional /HPF (0-10); Urine Color Yellow (Yellow); Urine Specific Gravity 1.009 (1.001-1.035); Urine Urobilinogen < 2.0 EU/DL (0.2-1.0); WBC,Urine 25 /HPF (0-6)
[2019-05-01] MEDS ORDERED: ONDANSETRON 4 MG/2 ML VIAL IV PRN (12:25)
[2019-05-01] MEDS ORDERED: ACETAMINOPHEN 325 MG TABLET PO PRN (12:25)
[2019-05-01] MEDS ORDERED: VANCOMYCIN INJ 1,000 MG in SODIUM CHLORIDE 0.9% 250 ML IV SCH (14:30)
[2019-05-01] MEDS ORDERED: MORPHINE 4 MG/1 ML VIAL IV PRN (14:31)
[2019-05-01] MEDS ORDERED: LORazepam 2 MG/1 ML VIAL IV PRN (14:31)
[2019-05-01] MEDS ORDERED: INSULIN LISPRO 100 UNIT/ML SUBCUT SCH (16:30)
[2019-05-01] MEDS ORDERED: BUDESONIDE/FORMOTEROL 160-4.5 INHALER 6 GM INH SCH (21:00)
[2019-05-01] MEDS ORDERED: lisinopriL 20 MG TABLET PO SCH (21:00)
[2019-05-01] MEDS ORDERED: FINASTERIDE 5 MG TABLET PO SCH (21:00)
[2019-05-01] MEDS ORDERED: DOCUSATE SODIUM 100 MG CAPSULE PO SCH (21:00)
[2019-05-01] MEDS: SODIUM CHLORIDE 0.9% 1,000 ML IV SCH (21:15)
[2019-05-02] MEDS: SODIUM CHLORIDE 0.9% 1,000 ML IV SCH ×2 (04:57→11:33)
[2019-05-02 05:22] VITALS: BP 107/84
[2019-05-02] MEDS ORDERED: ASPIRIN EC 81 MG TABLET PO SCH (09:00)
[2019-05-02] MEDS ORDERED: ATORVASTATIN 40 MG TABLET PO SCH (09:00)
[2019-05-02] MEDS ORDERED: SOTALOL 80 MG TABLET PO SCH (09:00)
[2019-05-02] MEDS ORDERED: TAMSULOSIN 0.4 MG CAPSULE PO SCH (09:00)
== END 2019-05-02 10:07 | disposition expired | DRG 951 ==
LOC: EDBD → EDUNIT# → N.ED 09:46 → N.EDINP 12:24 → N.2E 12:37
PROVIDERS: ADMIT Family Medicine; ATTEND Family Medicine